=== PATIENT | male | born 1955 | race Two or more races ===

== ENCOUNTER 2018-02-17 09:17 | Inpatient (IN) | payer MEDICAID ==
[~2018-02-17] VITALS: Ht 177.8 cm; Wt 101.6 kg
[2018-02-17 09:28] VITALS: BP 158/108
[2018-02-17] MEDS ORDERED: Sodium Chloride 500ML 500 ML IV ONE (09:29)
[2018-02-17] MEDS ORDERED: Lidocaine 2% Visc 15ml soln ORAL ONE (09:30)
[2018-02-17] MEDS ORDERED: Dicyclomine HCl 10mg/5ml oral soln ORAL ONE (09:30)
[2018-02-17] MEDS ORDERED: Mylanta II UD 30ml ORAL ONE (09:30)
--- NOTE | 2018-02-17 09:37 | Emergency Room Report ---
History of Present Illness General Chief Complaint: Abdominal Pain Source: Patient Present Illness HPI 62 yo M presents to ED c/o abdominal pain. notes having epigastric pain after eating x 1 month. pain is sharp, 6/10 non radiating. denies nausea or vomiting. denies chest pain or SOB. no other aggravating or relieving factors. denies any other associated symptoms Allergies: Coded Allergies: No Known Allergies (Unverified , 02/17/18) Patient History Past Medical History: none Past Surgical History: none Pertinent Family History: none Social History: Denies: smoking, alcohol use, drug use Immunizations: UTD Reviewed Nursing Documentation: PMH: Agreed; PSxH: Agreed Nursing Documentation-PMH Past Medical History: No Stated History Review of Systems All Other Systems: negative except mentioned in HPI Physical Exam Vital Signs Date Time Temp Pulse Resp B/P (MAP) Pulse Ox O2 Delivery O2 Flow Rate FiO2 02/17/18 09:20 98.0 142 16 162/105 97 Room Air 98.1 Sp02 EP Interpretation: reviewed, normal General Appearance: no apparent distress, alert, GCS 15, non-toxic, obese Head: normocephalic, atraumatic Eyes: bilateral eye normal inspection, bilateral eye PERRL ENT: hearing grossly normal, normal pharynx, no angioedema, normal voice Neck: full range of motion, supple/symm/no masses Respiratory: chest non-tender, lungs clear, normal breath sounds, speaking full sentences Cardiovascular #1: no edema, tachycardia Cardiovascular #2: 2+ carotid (R), 2+ carotid (L), 2+ radial (R), 2+ radial (L) , 2+ dorsalis pedis (R), 2+ dorsalis pedis (L) Gastrointestinal: normal bowel sounds, soft, non-distended, no guarding, no rebound, tenderness - epigastric Rectal: deferred Genitourinary: normal inspection, no CVA tenderness Musculoskeletal: back normal, gait/station normal, normal range of motion, non- tender Neurologic: alert, oriented x3, responsive, motor strength/tone normal, sensory intact, speech normal Psychiatric: judgement/insight normal, memory normal, mood/affect normal, no suicidal/homicidal ideation Reflexes: 3+ bicep (R), 3+ bicep (L), 3+ tricep (R), 3+ tricep (L), 3+ knee (R) , 3+ knee (L) Skin: normal color, no rash, warm/dry, well hydrated Lymphatic: no adenopathy Procedures Critical Care Time Critical Care Time i. I feel this is a highly complex case requiring extensive working including EKG/Rhythm strip, Xray/CT/US, Blood/urine lab work, repeat exams while in ED, and administration of strong opiates/narcotics for pain control, admission to hospital or close patient follow up. Total time: 30 min bedside evaluation and treatment excludes procedures (EKG). Reason for critical care: afib with RVR Possible complications: hypotension, hypertension, ME, shock, arrhythmias, metabolic acidosis, end organ damage, respiratory failure. Interventions: labs, ivfs, ekg, cxr, abd US. lopressor. aspirin Course: Patient presenting with epigastric pain 1 month. EKG shows A. fib with RVR to the 160s. Patient denies any previous cardiac history. Given Lopressor times multiple doses with heart rate improvement. Given multiple IV fluid boluses. Troponins negative. Abdominal ultrasound unremarkable. Consultations: nursing staff, EMS, family Performed by: Dr Cunningham Tolerated well condition = serious j. because of unstable vital signs this patient had a condition that could potentially threaten life or limb. I feel this is a critical patient who required my full attention while patient was considered critical. Total Critical Care Time excluding procedures was greater than 35 minutes Medical Decision Making Diagnostic Impression: Primary Impression: Atrial fibrillation with RVR Additional Impression: Renal insufficiency ER Course Hospital Course 62-year-old male presents ED with epigastric pain Differential diagnoses include: ME/unstable angina, gastritis, pancreatitis Clinical course Patient placed on stretcher. on anesthesia director which shows A. fib with RVR. no prior cardiac history After initial history and physical I ordered labs, EKG, chest x-ray, abd US labs reviewed- no leukocytosis, hemoglobin/hematocrit ok, BUN/Cr elevated, troponins 0.027 EKG - afib with RVR, no acute ischemic changes interpreted by me Chest x-ray- CHF ABD US - no acuet process IVFs, lopressor given. tachycardia improving. given aspirin Case discussed with Dr. Ayers and he agreed to accept the patient to his service for further care and support I. I feel this is a highly complex case requiring extensive working including EKG/Rhythm strip, Xray/CT/US, Blood/urine lab work, repeat exams while in ED, and administration of strong opiates/narcotics for pain control, admission to hospital or close patient follow up. Diagnosis - afib with RVR, renal insufficeincy admitted to telemetry in serious condition Labs Test 02/17/18 09:50 White Blood Count 8.7 K/UL (4.8-10.8) Red Blood Count 5.10 M/UL (4.70-6.10) Hemoglobin 14.3 G/DL (14.2-18.0) Hematocrit 44.5 % (42.0-52.0) Mean Corpuscular Volume 87 FL (80-99) Mean Corpuscular Hemoglobin 28.0 PG (27.0-31.0) Mean Corpuscular Hemoglobin Concent 32.1 G/DL (32.0-36.0) Red Cell Distribution Width 13.9 % (11.6-14.8) Platelet Count 303 K/UL (150-450) Mean Platelet Volume 8.8 FL (6.5-10.1) Neutrophils (%) (Auto) 65.1 % (45.0-75.0) Lymphocytes (%) (Auto) 26.4 % (20.0-45.0) Monocytes (%) (Auto) 5.8 % (1.0-10.0) Eosinophils (%) (Auto) 1.7 % (0.0-3.0) Basophils (%) (Auto) 1.1 % (0.0-2.0) Sodium Level 138 MMOL/L (136-145) Potassium Level 3.0 MMOL/L (3.5-5.1) Chloride Level 101 MMOL/L (98-107) Carbon Dioxide Level 28 MMOL/L (21-32) Anion Gap 9 mmol/L (5-15) Blood Urea Nitrogen 31 mg/dL (7-18) Creatinine 1.9 MG/DL (0.55-1.30) Estimat Glomerular Filtration Rate 36.3 mL/min (>60) Glucose Level 171 MG/DL (74-106) Calcium Level 8.3 MG/DL (8.5-10.1) Total Bilirubin 1.1 MG/DL (0.2-1.0) Direct Bilirubin 0.3 MG/DL (0.0-0.3) Aspartate Amino Transf (AST/SGOT) 45 U/L (15-37) Alanine Aminotransferase (ALT/SGPT) 103 U/L (12-78) Alkaline Phosphatase 64 U/L (46-116) Troponin I 0.027 ng/mL (0.000-0.056) Total Protein 6.6 G/DL (6.4-8.2) Albumin 3.2 G/DL (3.4-5.0) Globulin 3.4 g/dL Albumin/Globulin Ratio 0.9 (1.0-2.7) Lipase 251 U/L (73-393) EKG Diagnostic Results Rate: tachycardiac Rhythm: other - afib with RVR ST Segments: no acute changes ASA given to the pt in ED: Yes Rhythm Strip Diag. Results EP Interpretation: yes Rhythm: no PVC's Chest X-Ray Diagnostic Results Chest X-Ray Diagnostic Results : Chest X-Ray Ordered: Yes # of Views/Limited/Complete: 1 View Indication: Shortness of Breath EP Interpretation: Yes Interpretation: no pneumothorax, other - cardiomegaly. chf Impression: Other - chf Last Vital Signs Date Time Temp Pulse Resp B/P (MAP) Pulse Ox O2 Delivery O2 Flow Rate FiO2 02/17/18 09:20 98.0 142 16 162/105 97 Room Air 98.1 Status: improved Disposition: ADMITTED INPATIENT Condition: Serious Scripts No Active Prescriptions or Reported Evans Mat Cunningham MD Feb 17, 2018 09:37
[2018-02-17 10:00] VITALS: BP 160/114
[2018-02-17] MEDS: Metoprolol 5mg/5ml Inj IVP SCH ×6 (10:00→18:55)
[2018-02-17 10:05] VITALS: BP 162/133
[2018-02-17 10:08] LABS: BASOPHILS % (AUTO) 1.1 % (0.0-2.0); EOSINOPHILS % (AUTO) 1.7 % (0.0-3.0); HEMATOCRIT 44.5 % (42.0-52.0); HEMOGLOBIN 14.3 G/DL (14.2-18.0); LYMPHOCYTES % (AUTO) 26.4 % (20.0-45.0); MEAN CORPUSCULAR VOLUME 87 FL (80-99); MONOCYTES % (AUTO) 5.8 % (1.0-10.0); NEUTROPHILS % (AUTO) 65.1 % (45.0-75.0); PLATELET COUNT 303 K/UL (150-450); RED CELL DISTRIBUTION WIDTH 13.9 % (11.6-14.8); WHITE BLOOD COUNT 8.7 K/UL (4.8-10.8)
[2018-02-17 10:10] VITALS: BP 138/116
[2018-02-17 10:19] LABS: ANION GAP 9 mmol/L (5-15); BLOOD UREA NITROGEN 31 mg/dL (7-18); CALCIUM 8.3 MG/DL (8.5-10.1); CARBON DIOXIDE 28 MMOL/L (21-32); CHLORIDE 101 MMOL/L (98-107); CREATININE 1.9 MG/DL (0.55-1.30); SODIUM 138 MMOL/L (136-145)
[2018-02-17 10:26] LABS: ALANINE AMINOTRANSFERASE 103 U/L (12-78); ALBUMIN 3.2 G/DL (3.4-5.0); ALBUMIN/GLOBULIN RATIO 0.9 (1.0-2.7); ALKALINE PHOSPHATASE 64 U/L (46-116); ASPARTATE AMINO TRANSFERASE 45 U/L (15-37); BILIRUBIN,TOTAL 1.1 MG/DL (0.2-1.0)
--- NOTE | 2018-02-17 10:41 | Diagnostic Imaging Report ---
Indication: Pain Technique: XRAY Chest 1v Comparison: None Findings: Heart is enlarged. There is mild central pulmonary vascular congestion. These have contours appear sharp. No focal airspace consolidation, pleural effusion or pneumothorax. No acute osseous abnormality identified. No evidence to suggest free air under the diaphragms. Impression: Cardiomegaly with mild central pulmonary vascular congestion. No focal consolidation, pleural effusion or pneumothorax.
[2018-02-17 10:48] LABS: BILIRUBIN,DIRECT 0.3 MG/DL (0.0-0.3)
[2018-02-17] MEDS ORDERED: Metoprolol 5mg/5ml Inj IVP ONE (11:00)
[2018-02-17 11:35] VITALS: BP 126/89
--- NOTE | 2018-02-17 12:27 | History & Physical ---
History and Physical History & Physicial patient is seen and examined. Dictation will be completed later Joana Ayers MD Feb 17, 2018 12:27
--- NOTE | 2018-02-17 13:49 | Diagnostic Imaging Report ---
Indication: Abdominal pain Technique: US ABD Complete Comparison: None Findings: Liver is enlarged with the right lobe measuring 21 cm in length. No focal hepatic mass lesion is appreciated sonographically. The portal vein is patent. A approximate 5 mm echogenic structure adherent to the gallbladder wall is noted, likely representing a small gallbladder polyp. Gallbladder wall is mildly thickened at 3.6 mm. Sonographic Em sign reported as negative. There is no intrahepatic or extrahepatic biliary ductal dilatation. Common bile duct measures approximately 9 mm in diameter. Liver contour appears smooth. Pancreas poorly visualized due to overlying bowel gas. Imaged portions of the head are grossly unremarkable. Kidneys demonstrate normal echogenicity. No hydronephrosis or sonographically appreciable renal stone bilaterally. Spleen and the upper limits for normal size. Small amount of perihepatic and perisplenic ascites is noted. There is a trace right pleural effusion. IMPRESSION: * Subcentimeter echogenic focus in the gallbladder may represent a small gallbladder polyp versus stone. Per report, technologist unable to turn patient decubitus to assess for mobility. * Mild gallbladder wall thickening. Nonspecific, possibly related to concurrent mild ascites. Correlate clinically. Sonographic Em sign was reported as negative. * Pancreas poorly visualized due to overlying bowel gas. * Trace right pleural effusion. * Hepatomegaly.
[2018-02-17] MEDS: Enoxaparin 100mg Inj SUBQ SCH (15:44)
[2018-02-17] MEDS ORDERED: Digoxin 0.5mg/2ml Inj IVP SCH (19:30)
--- NOTE | 2018-02-17 19:41 | Cardiology Progress Note ---
Assessment/Plan Assessment/Plan The patient is seen and examined, full consult note will be dictated. Objective Last 24 Hour Vital Signs Date Time Temp Pulse Resp B/P (MAP) Pulse Ox O2 Delivery O2 Flow Rate FiO2 02/17/18 18:55 144 114/96 02/17/18 18:26 140 109/79 02/17/18 18:11 154 123/93 02/17/18 16:00 140 02/17/18 12:10 98.1 116 22 126/89 98 Room Air 98.1 02/17/18 11:35 98.1 116 22 126/89 98 Room Air 98.1 02/17/18 11:18 122 126/89 02/17/18 10:10 138 138/116 02/17/18 10:10 138 18 138/116 98 Room Air 02/17/18 10:05 135 162/133 02/17/18 10:05 98.1 135 18 162/133 100 Room Air 98.1 02/17/18 10:00 157 160/114 02/17/18 10:00 157 24 160/114 98 Room Air 02/17/18 09:28 98.1 158 18 158/108 100 Room Air 98.1 02/17/18 09:20 98.0 142 16 162/105 97 Room Air 98.1 Laboratory Tests Test 02/17/18 09:50 White Blood Count 8.7 K/UL (4.8-10.8) Red Blood Count 5.10 M/UL (4.70-6.10) Hemoglobin 14.3 G/DL (14.2-18.0) Hematocrit 44.5 % (42.0-52.0) Mean Corpuscular Volume 87 FL (80-99) Mean Corpuscular Hemoglobin 28.0 PG (27.0-31.0) Mean Corpuscular Hemoglobin Concent 32.1 G/DL (32.0-36.0) Red Cell Distribution Width 13.9 % (11.6-14.8) Platelet Count 303 K/UL (150-450) Mean Platelet Volume 8.8 FL (6.5-10.1) Neutrophils (%) (Auto) 65.1 % (45.0-75.0) Lymphocytes (%) (Auto) 26.4 % (20.0-45.0) Monocytes (%) (Auto) 5.8 % (1.0-10.0) Eosinophils (%) (Auto) 1.7 % (0.0-3.0) Basophils (%) (Auto) 1.1 % (0.0-2.0) Sodium Level 138 MMOL/L (136-145) Potassium Level 3.0 MMOL/L (3.5-5.1) L Chloride Level 101 MMOL/L (98-107) Carbon Dioxide Level 28 MMOL/L (21-32) Anion Gap 9 mmol/L (5-15) Blood Urea Nitrogen 31 mg/dL (7-18) H Creatinine 1.9 MG/DL (0.55-1.30) H Estimat Glomerular Filtration Rate 36.3 mL/min (>60) Glucose Level 171 MG/DL (74-106) H Calcium Level 8.3 MG/DL (8.5-10.1) L Total Bilirubin 1.1 MG/DL (0.2-1.0) H Direct Bilirubin 0.3 MG/DL (0.0-0.3) Aspartate Amino Transf (AST/SGOT) 45 U/L (15-37) H Alanine Aminotransferase (ALT/SGPT) 103 U/L (12-78) H Alkaline Phosphatase 64 U/L (46-116) Troponin I 0.027 ng/mL (0.000-0.056) Pro-B-Type Natriuretic Peptide Pending Total Protein 6.6 G/DL (6.4-8.2) Albumin 3.2 G/DL (3.4-5.0) L Globulin 3.4 g/dL Albumin/Globulin Ratio 0.9 (1.0-2.7) L Lipase 251 U/L (73-393) Armando Gardner MD Feb 17, 2018 19:41
[2018-02-17] MEDS: HydrALAZINE 10mg Tab ORAL SCH (19:59)
[2018-02-17 20:00] VITALS: BP 121/96
[2018-02-17] MEDS ORDERED: Metoprolol 25mg tab ORAL SCH (21:00)
[2018-02-17] MEDS ORDERED: Enoxaparin 80mg Inj SUBQ SCH (21:00)
[2018-02-17] MEDS ORDERED: Metoprolol Tartrate 50mg tab ORAL SCH (21:00)
--- NOTE | 2018-02-17 21:30 | Consultation ---
DATE OF CONSULTATION: 02/17/2018 CARDIOLOGY CONSULTATION CONSULTING PHYSICIAN: Armando Gardner M.D. REFERRING PHYSICIAN: Joana Ayers M.D. REASON FOR CONSULTATION: Management of atrial fibrillation. HISTORY OF PRESENT ILLNESS: The patient is a very unfortunate 62-year-old gentleman, who presented to the emergency department complaining of abdominal pain, which is mainly in the epigastric area that happens postprandial and has been going on for the past month. On arrival to the hospital, the patient was noted to have a blood pressure of 162/105 mmHg and heart rate of 142. A 12-lead electrocardiogram confirmed atrial fibrillation with rapid ventricular response at the rate of 168. The patient was admitted to telemetry for further evaluation and management. Cardiology consultation was made at the request of Dr. Ayers to address and assess new onset atrial fibrillation. The patient, of note, has not been on any medication and has not had any medical problem up to this date. PAST MEDICAL HISTORY: None. PAST SURGICAL HISTORY: None. LIST OF MEDICATIONS: None. ALLERGIES: No known drug allergies. FAMILY HISTORY: No history of premature coronary artery disease or arrhythmogenic in the first-degree relatives. SOCIAL HISTORY: Denies any history of tobacco, alcohol, or illicit drug use. REVIEW OF SYSTEMS: A 12-system review done essentially negative except what mentioned in the history of present illness. COURSE OF HOSPITALIZATION: The patient received two doses of intravenous metoprolol 5 mg in the emergency department and was transferred up to telemetry. In the telemetry unit, the patient continued to have atrial fibrillation with rapid ventricular response and received an extra three doses of 5 mg IV metoprolol and became short of breath and diaphoretic. The blood pressure remained to be stable at 117/95 mmHg. Chest x-ray review showed cardiomegaly with some signs of pulmonary vascular congestion and early congestive heart failure. A 2D echocardiogram was also reviewed showing global left ventricular hypokinesia with left ventricular ejection fraction approximately 10% and evidence of severe pulmonary hypertension. The patient has already been started on Lovenox 100 mg subcutaneous q.[address] Ayers. PHYSICAL EXAMINATION: VITAL SIGNS: On arrival to the emergency department, blood pressure was 162/105 mmHg, respirations of 16, pulse of 142, temperature 98.0 degrees Fahrenheit, and O2 saturation of 97% on room air. GENERAL: The patient is a very unfortunate 62-year-old gentleman, currently diaphoretic, in [id number] respiratory distress, following the administration of intravenous metoprolol. He denies any chest pain or palpitations. HEENT: Atraumatic and normocephalic. Anicteric. Pupils are equal, round, and reactive to light and accommodation. Extraocular muscles intact. NECK: JVP is about 15 to 20 cm. No carotid bruit. Carotid upstrokes 2+ bilaterally. CARDIOVASCULAR: Normal S1 and S2. Tachycardic. Irregular regular rhythm. No murmurs, gallops, or rubs. LUNGS: Diminished breath sounds throughout with evidence of bibasilar crackles. ABDOMEN: Soft, nontender, and nondistended. No hepatosplenomegaly. Positive bowel sounds. EXTREMITIES: No evidence of edema, clubbing, or cyanosis. LABORATORY FINDINGS: WBC is 8.7, hemoglobin 14.3, hematocrit of 44.5, and platelet count 303,000. Sodium is 138, potassium 3.0, chloride 101, bicarbonate 28, BUN of 31, creatinine 1.9, and glucose 171. Calcium is 8.3. Troponin I 0.027. AST is 45 and ALT of 103. Chest x-ray shows cardiomegaly with central pulmonary vascular congestion and early congestive heart failure. A 12-lead electrocardiogram, atrial fibrillation with rapid ventricular response at the rate of 168 with septal wall infarct and no evidence of left ventricular hypertrophy. There is single ventricular premature complexes. ASSESSMENT AND PLAN: The patient is a very unfortunate 62-year-old gentleman, seen in Cardiology consultation at the request of Dr. Ayers. 1. Atrial fibrillation with rapid ventricular response likely due to underlying structural heart disease, i.e. atrial dilatation. The patient will be continued on Lovenox 100 mg subcutaneous twice daily, he was refractory to metoprolol IV. I would like to switch to Coreg 3.125 mg twice daily given the report of 2D echocardiography consistent with severe dilated cardiomyopathy. I would also like to use digoxin 0.25 mg intravenous push x1 dose given creatinine of 1.9. Additional KCl 40 mEq was given to avoid digoxin toxicity with hypokalemia. The patient may end up having FIDELINA and cardioversion if he remains to be in atrial fibrillation despite aggressive medical therapy. 2. Severe dilated cardiomyopathy with left ventricular ejection fraction approximately 10%. Diastolic function could not be evaluated due to underlying atrial fibrillation. The patient requires workup of acute heart failure including left and right heart catheterization, which will be arranged once he is more stable. At this time, I would like to start the patient on Coreg 3.125 mg daily. Continue digoxin 0.125 mg daily and given the fact that his creatinine is 1.9, to start a combination of Isordil and hydralazine. He would benefit from low-dose Aldactone although it depends on the creatinine level in the next few days. 3. Hyperglycemia. Require to workup diabetes mellitus. Obtain hemoglobin A1c. I would have Dr. Ayers to proceed with the above. I would like to thank, Dr. Ayers, for the courtesy of this consultation. Armando Gardner M.D. DR: NAVID JOB#: [id number] CC:
[2018-02-18] VITALS: BP 112/90
[2018-02-18 04:00] VITALS: BP 145/92
[2018-02-18 06:29] LABS: BASOPHILS % (AUTO) 0.9 % (0.0-2.0); EOSINOPHILS % (AUTO) 0.4 % (0.0-3.0); HEMATOCRIT 40.3 % (42.0-52.0); HEMOGLOBIN 13.3 G/DL (14.2-18.0); LYMPHOCYTES % (AUTO) 21.5 % (20.0-45.0); MEAN CORPUSCULAR VOLUME 88 FL (80-99); MONOCYTES % (AUTO) 6.4 % (1.0-10.0); NEUTROPHILS % (AUTO) 70.8 % (45.0-75.0); PLATELET COUNT 222 K/UL (150-450); RED BLOOD COUNT 4.58 M/UL (4.70-6.10); RED CELL DISTRIBUTION WIDTH 14.1 % (11.6-14.8); WHITE BLOOD COUNT 7.9 K/UL (4.8-10.8)
[2018-02-18 07:02] LABS: ALANINE AMINOTRANSFERASE 359 U/L (12-78); ALBUMIN 2.8 G/DL (3.4-5.0); ALKALINE PHOSPHATASE 79 U/L (46-116); ANION GAP 11 mmol/L (5-15); ASPARTATE AMINO TRANSFERASE 355 U/L (15-37); BILIRUBIN,TOTAL 1.3 MG/DL (0.2-1.0); BLOOD UREA NITROGEN 40 mg/dL (7-18); CALCIUM 7.7 MG/DL (8.5-10.1); CARBON DIOXIDE 26 MMOL/L (21-32); CHLORIDE 104 MMOL/L (98-107); CHOLESTEROL 85 MG/DL (< 200); CREATININE 2.6 MG/DL (0.55-1.30); HDL CHOLESTEROL 23 MG/DL (40-60); POTASSIUM 4.1 MMOL/L (3.5-5.1); SODIUM 141 MMOL/L (136-145); TRIGLYCERIDES 46 MG/DL (30-150)
[2018-02-18 07:04] LABS: BILIRUBIN,DIRECT 0.5 MG/DL (0.0-0.3)
[2018-02-18 08:00] VITALS: BP 138/91
[2018-02-18] MEDS: Enoxaparin 100mg Inj SUBQ SCH ×2 (08:50→21:03)
[2018-02-18] MEDS: Digoxin 0.125mg tab ORAL SCH (08:52)
[2018-02-18] MEDS: HydrALAZINE 10mg Tab ORAL SCH ×3 (08:52→17:52)
--- NOTE | 2018-02-18 09:37 | History & Physical ---
History and Physical History & Physicial HISTORY OF PRESENT ILLNESS: The patient is a very unfortunate 62-year-old gentleman, who presented to the emergency department complaining of abdominal pain, which is mainly in the epigastric area that happens postprandial and has been going on for the past month. On arrival to the hospital, the patient was noted to have a blood pressure of 162/105 mmHg and heart rate of 142. A 12-lead electrocardiogram confirmed atrial fibrillation with rapid ventricular response at the rate of 168. The patient was admitted to telemetry for further evaluation and management. The patient, of note, has not been on any medication and has not had any medical problem up to this date. PAST MEDICAL HISTORY: None. PAST SURGICAL HISTORY: None. LIST OF MEDICATIONS: None. ALLERGIES: No known drug allergies. FAMILY HISTORY: No history of premature coronary artery disease or arrhythmogenic in the first-degree relatives. SOCIAL HISTORY: Denies any history of tobacco, alcohol, or illicit drug use. REVIEW OF SYSTEMS: A 12-system review done essentially negative except what mentioned in the history of present illness. The patient has already been started on Lovenox 100 mg subcutaneous q.[address] Ayers. PHYSICAL EXAMINATION: VITAL SIGNS: On arrival to the emergency department, blood pressure was 162/105 mmHg, respirations of 16, pulse of 142, temperature 98.0 degrees Fahrenheit, and O2 saturation of 97% on room air. GENERAL: The patient is a very unfortunate 62-year-old gentleman, currently diaphoretic, in [id number] respiratory distress, following the administration of intravenous metoprolol. He denies any chest pain or palpitations. HEENT: Atraumatic and normocephalic. Anicteric. Pupils are equal, round, and reactive to light and accommodation. Extraocular muscles intact. NECK: JVP is about 15 to 20 cm. No carotid bruit. Carotid upstrokes 2+ bilaterally. CARDIOVASCULAR: Normal S1 and S2. Tachycardic. Irregular regular rhythm. No murmurs, gallops, or rubs. LUNGS: Diminished breath sounds throughout with evidence of bibasilar crackles. ABDOMEN: Soft, nontender, and nondistended. No hepatosplenomegaly. Positive bowel sounds. EXTREMITIES: No evidence of edema, clubbing, or cyanosis. LABORATORY FINDINGS: WBC is 8.7, hemoglobin 14.3, hematocrit of 44.5, and platelet count 303,000. Sodium is 138, potassium 3.0, chloride 101, bicarbonate 28, BUN of 31, creatinine 1.9, and glucose 171. Calcium is 8.3. Troponin I 0.027. AST is 45 and ALT of 103. Chest x-ray shows cardiomegaly with central pulmonary vascular congestion and early congestive heart failure. A 12-lead electrocardiogram, atrial fibrillation with rapid ventricular response at the rate of 168 with septal wall infarct and no evidence of left ventricular hypertrophy. There is single ventricular premature complexes. ASSESSMENT AND PLAN: 1- New CHF- Low EF 2- Renal failure 3- HypoNatremia 4- Anemia Plan: Admit to Tele Echo Cardiology consult Monitor serum Troponin levels Joana Ayers MD Feb 18, 2018 09:37
--- NOTE | 2018-02-18 09:39 | General Progress Note ---
Assessment/Plan Assessment/Plan S: I am ok O: appears comfortable, at the bed side. Denies SOB or CP PHYSICAL EXAMINATION: He denies any chest pain or palpitations. HEENT: Atraumatic and normocephalic. Anicteric. Pupils are equal, round, and reactive to light and accommodation. Extraocular muscles intact. NECK: JVP is about 15 to 20 cm. No carotid bruit. Carotid upstrokes 2+ bilaterally. CARDIOVASCULAR: Normal S1 and S2. Tachycardic. Irregular regular rhythm. No murmurs, gallops, or rubs. LUNGS: Diminished breath sounds throughout with evidence of bibasilar crackles. ABDOMEN: Soft, nontender, and nondistended. No hepatosplenomegaly. Positive bowel sounds. EXTREMITIES: No evidence of edema, clubbing, or cyanosis. LABORATORY FINDINGS: hemoglobin 11.3, ASSESSMENT AND PLAN: 1- New CHF- Low EF 2- Renal failure 3- HypoNatremia 4- Anemia 5- Hypothyroidism Plan: Anemia workup start Levothyroxine c/w Lovenox and Dig Subjective Allergies: Coded Allergies: No Known Allergies (Unverified , 02/17/18) Objective Last 24 Hour Vital Signs Date Time Temp Pulse Resp B/P (MAP) Pulse Ox O2 Delivery O2 Flow Rate FiO2 02/18/18 08:52 138/91 02/18/18 08:52 71 02/18/18 08:51 71 138/91 02/18/18 06:00 145/92 02/18/18 04:00 99.0 115 16 145/92 98 Nasal Cannula 6.0 99.0 02/18/18 04:00 115 02/18/18 00:09 114/96 02/18/18 00:00 98.0 110 20 112/90 96 Nasal Cannula 6.0 98.0 02/18/18 00:00 110 02/17/18 21:41 145 114/96 02/17/18 20:01 114/96 02/17/18 20:00 126 02/17/18 20:00 98.0 145 22 121/96 96 Nasal Cannula 6.0 98.0 02/17/18 19:59 114/96 02/17/18 19:59 145 02/17/18 18:55 144 114/96 02/17/18 18:26 140 109/79 02/17/18 18:11 154 123/93 02/17/18 16:00 140 02/17/18 12:10 98.1 116 22 126/89 98 Room Air 98.1 02/17/18 11:35 98.1 116 22 126/89 98 Room Air 98.1 02/17/18 11:18 122 126/89 02/17/18 10:10 138 138/116 02/17/18 10:10 138 18 138/116 98 Room Air 02/17/18 10:05 135 162/133 02/17/18 10:05 98.1 135 18 162/133 100 Room Air 98.1 02/17/18 10:00 157 160/114 02/17/18 10:00 157 24 160/114 98 Room Air Intake and Output 02/17/18 02/18/18 19:00 07:00 Intake Total 1900 ml 240 ml Output Total 1200 ml Balance 1900 ml -960 ml Intake Oral 400 ml 240 ml IV Total 1500 ml Output Urine Total 1200 ml # Voids 3 3 Laboratory Tests 02/17/18 09:50: White Blood Count 8.7, Red Blood Count 5.10, Hemoglobin 14.3, Hematocrit 44.5, Mean Corpuscular Volume 87, Mean Corpuscular Hemoglobin 28.0, Mean Corpuscular Hemoglobin Concent 32.1, Red Cell Distribution Width 13.9, Platelet Count 303, Mean Platelet Volume 8.8, Neutrophils (%) (Auto) 65.1, Lymphocytes (%) (Auto) 26.4, Monocytes (%) (Auto) 5.8, Eosinophils (%) (Auto) 1.7, Basophils (%) (Auto ) 1.1, Sodium Level 138, Potassium Level 3.0L, Chloride Level 101, Carbon Dioxide Level 28, Anion Gap 9, Blood Urea Nitrogen 31H, Creatinine 1.9H, Estimat Glomerular Filtration Rate 36.3, Glucose Level 171H, Calcium Level 8.3L , Total Bilirubin 1.1H, Direct Bilirubin 0.3, Aspartate Amino Transf (AST/SGOT) 45H, Alanine Aminotransferase (ALT/SGPT) 103H, Alkaline Phosphatase 64, Troponin I 0.027, Pro-B-Type Natriuretic Peptide 2624H, Total Protein 6.6, Albumin 3.2L, Globulin 3.4, Albumin/Globulin Ratio 0.9L, Lipase 251 02/17/18 20:00: Troponin I 0.049 02/18/18 05:50: White Blood Count 7.9, Red Blood Count 4.58L, Hemoglobin 13.3L, Hematocrit 40.3L , Mean Corpuscular Volume 88, Mean Corpuscular Hemoglobin 29.0, Mean Corpuscular Hemoglobin Concent 33.0, Red Cell Distribution Width 14.1, Platelet Count 222, Mean Platelet Volume 8.9, Neutrophils (%) (Auto) 70.8, Lymphocytes (% ) (Auto) 21.5, Monocytes (%) (Auto) 6.4, Eosinophils (%) (Auto) 0.4, Basophils ( %) (Auto) 0.9, Sodium Level 141, Potassium Level 4.1, Chloride Level 104, Carbon Dioxide Level 26, Anion Gap 11, Blood Urea Nitrogen 40H, Creatinine 2.6H , Estimat Glomerular Filtration Rate 25.3, Glucose Level 122H, Calcium Level 7.7L, Total Bilirubin 1.3H, Direct Bilirubin 0.5H, Aspartate Amino Transf (AST/ SGOT) 355H, Alanine Aminotransferase (ALT/SGPT) 359H, Alkaline Phosphatase 79, Troponin I 0.071H, Pro-B-Type Natriuretic Peptide 5213H, Total Protein 5.7L, Albumin 2.8L, Globulin 2.9, Albumin/Globulin Ratio 1.0, Hemoglobin A1c 6.8H, Triglycerides Level 46, Cholesterol Level 85, LDL Cholesterol 68, HDL Cholesterol 23L, Cholesterol/HDL Ratio 3.7, Thyroid Stimulating Hormone (TSH) 4.760H Height (Feet): 5 Height (Inches): 10.00 Weight (Pounds): 240 Joana Ayers MD Feb 18, 2018 09:39
[2018-02-18 10:59] LABS: % IRON SATURATION 6 % (15-50); IRON 19 ug/dL (50-175); TOTAL IRON BINDING CAPACITY 313 ug/dL (250-450)
[2018-02-18 11:53] VITALS: BP 130/93
--- NOTE | 2018-02-18 14:22 | Cardiology Report ---
APPROVED REPORT EKG Measurement Heart [id number] Atrial fibrillation with rapid ventricular response with premature ventricular or aberrantly conducted complexes Septal infarct, age undetermined Abnormal ECG
[2018-02-18 16:00] VITALS: BP 137/73
[2018-02-18 20:00] VITALS: BP 130/87
[2018-02-19] VITALS: BP 128/93
[2018-02-19 04:00] VITALS: BP 145/76
[2018-02-19] MEDS: Levothyroxine 25mcg tab ORAL SCH (05:52)
[2018-02-19] MEDS: Enoxaparin 100mg Inj SUBQ SCH ×2 (08:01→20:43)
[2018-02-19] MEDS: Digoxin 0.125mg tab ORAL SCH (08:02)
[2018-02-19] MEDS: HydrALAZINE 10mg Tab ORAL SCH ×3 (08:02→17:50)
[2018-02-19 08:03] VITALS: BP 140/90
--- NOTE | 2018-02-19 11:04 | General Progress Note ---
Assessment/Plan Assessment/Plan S: I am ok O: appears comfortable, at the bed side. Denies SOB or CP PHYSICAL EXAMINATION: He denies any chest pain or palpitations. HEENT: Atraumatic and normocephalic. Anicteric. Pupils are equal, round, and reactive to light and accommodation. Extraocular muscles intact. NECK: JVP is about 15 to 20 cm. No carotid bruit. Carotid upstrokes 2+ bilaterally. CARDIOVASCULAR: Normal S1 and S2. Tachycardic. Irregular regular rhythm. No murmurs, gallops, or rubs. LUNGS: Diminished breath sounds throughout with evidence of bibasilar crackles. ABDOMEN: Soft, nontender, and nondistended. No hepatosplenomegaly. Positive bowel sounds. EXTREMITIES: No evidence of edema, clubbing, or cyanosis. LABORATORY FINDINGS: hemoglobin 11.3, ASSESSMENT AND PLAN: 1- New CHF- Low EF 2- Renal failure 3- HypoNatremia 4- Anemia 5- Hypothyroidism 6- Iron Def. Anemia 7. Abn LFT Plan: Iron supplement Stool test Hepatitis panel Subjective Allergies: Coded Allergies: No Known Allergies (Unverified , 02/17/18) Objective Last 24 Hour Vital Signs Date Time Temp Pulse Resp B/P (MAP) Pulse Ox O2 Delivery O2 Flow Rate FiO2 02/19/18 09:00 Room Air 02/19/18 08:03 98.2 147 18 140/90 (107) 97 98.2 02/19/18 08:03 147 140/90 02/19/18 08:02 140/90 02/19/18 08:02 147 02/19/18 08:00 162 02/19/18 05:52 130/93 02/19/18 04:00 97.4 128 18 145/76 (99) 94 97.4 02/19/18 04:00 126 02/19/18 00:30 130/93 02/19/18 00:00 133 02/19/18 00:00 97.6 133 16 128/93 (105) 96 97.6 02/18/18 21:02 132 130/93 02/18/18 21:00 Room Air 02/18/18 20:00 130 02/18/18 20:00 97.7 130 18 130/87 (101) 95 97.7 02/18/18 17:52 130/93 02/18/18 17:52 130/93 02/18/18 16:00 132 02/18/18 16:00 97.3 93 20 137/73 (94) 97 97.3 02/18/18 12:00 133 02/18/18 11:55 130/93 02/18/18 11:55 130/93 02/18/18 11:53 97.3 53 20 130/93 (105) 97 97.3 Intake and Output 02/18/18 02/19/18 19:00 07:00 Intake Total 300 ml Output Total 1100 ml Balance 300 ml -1100 ml Intake Oral 300 ml Output Urine Total 1100 ml # Voids 4 Laboratory Tests 02/18/18 11:50: Troponin I 0.058H Height (Feet): 5 Height (Inches): 10.00 Weight (Pounds): 240 Joana Ayers MD Feb 19, 2018 11:04
[2018-02-19 11:47] VITALS: BP 132/86
[2018-02-19 16:00] VITALS: BP 125/83
--- NOTE | 2018-02-19 17:06 | Cardiology Progress Note ---
Assessment/Plan Assessment/Plan 1. Atrial fibrillation with rapid ventricular response likely due to underlying structural heart disease, i.e. atrial dilatation. Will uptitrate coreg. 2. Severe dilated cardiomyopathy with left ventricular ejection fraction approximately 10%. Transfer to [facility] for work-up of acute heart failure, i.e. left and right heart catheterization, 3. Short runs of NSVT, Mg sulfate given, keep Mg level >2.5, K >4.0. Subjective Subjective Short runs of non-sustained VT noted. Mg level checked at 1.9, one gram Mg sulfate IV given. Still Afib with RVR. Objective Last 24 Hour Vital Signs Date Time Temp Pulse Resp B/P (MAP) Pulse Ox O2 Delivery O2 Flow Rate FiO2 02/19/18 16:00 98.1 61 20 125/83 (97) 98 98.1 02/19/18 16:00 146 02/19/18 12:05 132/86 02/19/18 12:05 132/86 02/19/18 12:00 133 02/19/18 11:47 98.4 72 20 132/86 (101) 98 98.4 02/19/18 09:00 Room Air 02/19/18 08:03 98.2 147 18 140/90 (107) 97 98.2 02/19/18 08:03 147 140/90 02/19/18 08:02 140/90 02/19/18 08:02 147 02/19/18 08:00 162 02/19/18 05:52 130/93 02/19/18 04:00 97.4 128 18 145/76 (99) 94 97.4 02/19/18 04:00 126 02/19/18 00:30 130/93 02/19/18 00:00 133 02/19/18 00:00 97.6 133 16 128/93 (105) 96 97.6 02/18/18 21:02 132 130/93 02/18/18 21:00 Room Air 02/18/18 20:00 130 02/18/18 20:00 97.7 130 18 130/87 (101) 95 97.7 02/18/18 17:52 130/93 02/18/18 17:52 130/93 Intake and Output 02/18/18 02/19/18 19:00 07:00 Intake Total 300 ml Output Total 1100 ml Balance 300 ml -1100 ml Intake Oral 300 ml Output Urine Total 1100 ml # Voids 4 2D Echo: Global LV HK, EF 15%, RVSP 53 mmHg, cannot assess diastolic fxn due to AF Laboratory Tests Test 02/19/18 12:25 Magnesium Level 1.9 MG/DL (1.8-2.4) Hepatitis A IgM Antibody Pending Hepatitis B Surface Antigen Pending Hepatitis B Core IgM Antibody Pending Hepatitis C Antibody Pending Objective HEENT: Atraumatic and normocephalic. Anicteric. Pupils are equal, round, and reactive to light and accommodation. Extraocular muscles intact. NECK: JVP is about 20 cm. No carotid bruit. Carotid upstrokes 2+ bilaterally. CARDIOVASCULAR: Normal S1 and S2. Tachycardic. Irregular regular rhythm. No murmurs, gallops, or rubs. LUNGS: Diminished breath sounds throughout with evidence of bibasilar crackles. ABDOMEN: Soft, nontender, and nondistended. No hepatosplenomegaly. Positive bowel sounds. EXTREMITIES: No evidence of edema, clubbing, or cyanosis. Armando aGrdner MD Feb 19, 2018 17:06
[2018-02-19 17:55] LABS: ANION GAP 12 mmol/L (5-15); BLOOD UREA NITROGEN 45 mg/dL (7-18); CALCIUM 8.2 MG/DL (8.5-10.1); CARBON DIOXIDE 23 MMOL/L (21-32); CHLORIDE 105 MMOL/L (98-107); CREATININE 2.3 MG/DL (0.55-1.30); POTASSIUM 4.2 MMOL/L (3.5-5.1); SODIUM 140 MMOL/L (136-145)
[2018-02-19 20:00] VITALS: BP 134/101
[2018-02-19] MEDS: Carvedilol 6.25mg Tab ORAL SCH (20:42)
[2018-02-20] VITALS: BP 143/92
[2018-02-20 04:00] VITALS: BP 131/104
[2018-02-20] MEDS: Levothyroxine 25mcg tab ORAL SCH (06:06)
[2018-02-20 08:00] VITALS: BP 148/111
[2018-02-20] MEDS: Carvedilol 6.25mg Tab ORAL SCH (08:42)
[2018-02-20] MEDS: HydrALAZINE 10mg Tab ORAL SCH (08:42)
[2018-02-20] MEDS: Digoxin 0.125mg tab ORAL SCH (08:43)
[2018-02-20] MEDS: Enoxaparin 100mg Inj SUBQ SCH ×2 (08:45→21:01)
--- NOTE | 2018-02-20 10:00 | Cardiology Progress Note ---
Assessment/Plan Assessment/Plan 1. Atrial fibrillation with rapid ventricular response likely due to underlying structural heart disease, i.e. atrial dilatation. Continue to uptitrate coreg. May require FIDELINA and cardioversion. 2. Severe dilated cardiomyopathy with left ventricular ejection fraction approximately 10%. Transfer to [facility] for work-up of acute heart failure, i.e. left and right heart catheterization, 3. Short runs of NSVT, check Mg level this am. Subjective Subjective Afib with RVR.at 130. Objective Last 24 Hour Vital Signs Date Time Temp Pulse Resp B/P (MAP) Pulse Ox O2 Delivery O2 Flow Rate FiO2 02/20/18 09:00 Room Air 02/20/18 08:43 145 02/20/18 08:42 145 148/111 02/20/18 08:42 148/111 02/20/18 08:00 98.5 145 18 148/111 (123) 98.5 02/20/18 06:06 131/104 02/20/18 04:00 98.0 116 20 131/104 (113) 95 98.0 02/20/18 04:00 129 02/20/18 01:05 125/83 02/20/18 00:00 133 02/20/18 00:00 97.9 112 22 143/92 (109) 96 97.9 02/19/18 21:00 Room Air 02/19/18 20:42 146 125/83 02/19/18 20:00 99.4 110 21 134/101 (112) 97 99.4 02/19/18 20:00 125 02/19/18 17:51 125/83 02/19/18 17:50 125/83 02/19/18 16:00 98.1 61 20 125/83 (97) 98 98.1 02/19/18 16:00 146 02/19/18 12:05 132/86 02/19/18 12:05 132/86 02/19/18 12:00 133 02/19/18 11:47 98.4 72 20 132/86 (101) 98 98.4 Intake and Output 02/19/18 02/20/18 19:00 07:00 Intake Total 540 ml 640 ml Balance 540 ml 640 ml Intake Oral 540 ml 640 ml # Voids 4 1 # Bowel Movements 1 2D Echo: Global LV HK, EF 15%, RVSP 53 mmHg, cannot assess diastolic fxn due to AF Laboratory Tests Test 02/19/18 12:20 02/19/18 12:25 Sodium Level 140 MMOL/L (136-145) Potassium Level 4.2 MMOL/L (3.5-5.1) Chloride Level 105 MMOL/L (98-107) Carbon Dioxide Level 23 MMOL/L (21-32) Anion Gap 12 mmol/L (5-15) Blood Urea Nitrogen 45 mg/dL (7-18) H Creatinine 2.3 MG/DL (0.55-1.30) H Estimat Glomerular Filtration Rate 29.2 mL/min (>60) Glucose Level 180 MG/DL (74-106) H Calcium Level 8.2 MG/DL (8.5-10.1) L Pro-B-Type Natriuretic Peptide 3762 pg/mL (0-125) H Magnesium Level 1.9 MG/DL (1.8-2.4) Hepatitis A IgM Antibody Pending Hepatitis B Surface Antigen Pending Hepatitis B Core IgM Antibody Pending Hepatitis C Antibody Pending Objective HEENT: Atraumatic and normocephalic. Anicteric. Pupils are equal, round, and reactive to light and accommodation. Extraocular muscles intact. NECK: JVP is about 20 cm. No carotid bruit. Carotid upstrokes 2+ bilaterally. CARDIOVASCULAR: Normal S1 and S2. Tachycardic. Irregular regular rhythm. No murmurs, gallops, or rubs. LUNGS: Diminished breath sounds throughout with evidence of bibasilar crackles. ABDOMEN: Soft, nontender, and nondistended. No hepatosplenomegaly. Positive bowel sounds. EXTREMITIES: No evidence of edema, clubbing, or cyanosis. Armando Gardner MD Feb 20, 2018 10:00
[2018-02-20] MEDS ORDERED: Tubing IV Secondary IV ONE (10:48)
[2018-02-20] MEDS ORDERED: NS 275ml ONE (10:48)
[2018-02-20 12:00] VITALS: BP 148/107
[2018-02-20 12:12] LABS: ANION GAP 7 mmol/L (5-15); BLOOD UREA NITROGEN 36 mg/dL (7-18); CALCIUM 8.3 MG/DL (8.5-10.1); CARBON DIOXIDE 25 MMOL/L (21-32); CHLORIDE 106 MMOL/L (98-107); CREATININE 1.9 MG/DL (0.55-1.30); POTASSIUM 3.9 MMOL/L (3.5-5.1); SODIUM 138 MMOL/L (136-145)
[2018-02-20] MEDS: HydrALAZINE 50mg tab ORAL SCH ×2 (12:24→17:12)
--- NOTE | 2018-02-20 12:56 | General Progress Note ---
Assessment/Plan Assessment/Plan S: I am ok O: appears comfortable, at the bed side. Denies SOB or CP PHYSICAL EXAMINATION: He denies any chest pain or palpitations. HEENT: Atraumatic and normocephalic. Anicteric. Pupils are equal, round, and reactive to light and accommodation. Extraocular muscles intact. NECK: JVP is about 15 to 20 cm. No carotid bruit. Carotid upstrokes 2+ bilaterally. CARDIOVASCULAR: Normal S1 and S2. Tachycardic. Irregular regular rhythm. No murmurs, gallops, or rubs. LUNGS: Diminished breath sounds throughout with evidence of bibasilar crackles. ABDOMEN: Soft, nontender, and nondistended. No hepatosplenomegaly. Positive bowel sounds. EXTREMITIES: No evidence of edema, clubbing, or cyanosis. LABORATORY FINDINGS: hemoglobin 11.3, ASSESSMENT AND PLAN: 1- New Dilated Cardiomypathy 2. Afib with RVR 2- Renal failure 3- HypoNatremia 4- Anemia 5- Hypothyroidism 6- Iron Def. Anemia 7. Abn LFT Plan: Iron supplement Transfer to higher level of care Subjective Allergies: Coded Allergies: No Known Allergies (Unverified , 02/17/18) Objective Last 24 Hour Vital Signs Date Time Temp Pulse Resp B/P (MAP) Pulse Ox O2 Delivery O2 Flow Rate FiO2 02/20/18 12:24 148/111 02/20/18 12:00 97.1 128 20 148/107 (121) 97 97.1 02/20/18 11:42 148/111 02/20/18 09:00 Room Air 02/20/18 08:43 145 02/20/18 08:42 145 148/111 02/20/18 08:42 148/111 02/20/18 08:00 156 02/20/18 08:00 98.5 145 18 148/111 (123) 98.5 02/20/18 06:06 131/104 02/20/18 04:00 98.0 116 20 131/104 (113) 95 98.0 02/20/18 04:00 129 02/20/18 01:05 125/83 02/20/18 00:00 133 02/20/18 00:00 97.9 112 22 143/92 (109) 96 97.9 02/19/18 21:00 Room Air 02/19/18 20:42 146 125/83 02/19/18 20:00 99.4 110 21 134/101 (112) 97 99.4 02/19/18 20:00 125 02/19/18 17:51 125/83 02/19/18 17:50 125/83 02/19/18 16:00 98.1 61 20 125/83 (97) 98 98.1 02/19/18 16:00 146 Intake and Output 02/19/18 02/20/18 19:00 07:00 Intake Total 540 ml 640 ml Balance 540 ml 640 ml Intake Oral 540 ml 640 ml # Voids 4 1 # Bowel Movements 1 Laboratory Tests 02/20/18 11:20: Sodium Level 138, Potassium Level 3.9, Chloride Level 106, Carbon Dioxide Level 25, Anion Gap 7, Blood Urea Nitrogen 36H, Creatinine 1.9H, Estimat Glomerular Filtration Rate 36.3, Glucose Level 144H, Calcium Level 8.3L, Pro-B-Type Natriuretic Peptide 4422H, Digoxin Level 0.7 Height (Feet): 5 Height (Inches): 10.00 Weight (Pounds): 233 Joana Ayers MD Feb 20, 2018 12:56
[2018-02-20 16:00] VITALS: BP 129/105
[2018-02-20 20:00] VITALS: BP 134/86
[2018-02-20] MEDS: Carvedilol 12.5mg tab ORAL SCH (21:02)
[2018-02-21] VITALS: BP 128/83
[2018-02-21 04:00] VITALS: BP 122/65
[2018-02-21] MEDS: Levothyroxine 25mcg tab ORAL SCH (05:39)
[2018-02-21 08:00] VITALS: BP 139/94
[2018-02-21] MEDS: HydrALAZINE 50mg tab ORAL SCH ×3 (09:16→17:59)
[2018-02-21] MEDS: Digoxin 0.125mg tab ORAL SCH (09:17)
[2018-02-21] MEDS: Carvedilol 12.5mg tab ORAL SCH ×2 (09:17→21:03)
[2018-02-21] MEDS: Enoxaparin 100mg Inj SUBQ SCH ×2 (09:18→21:05)
--- NOTE | 2018-02-21 11:45 | General Progress Note ---
Assessment/Plan Assessment/Plan S: I am ok O: appears comfortable, at the bed side. Denies SOB or CP PHYSICAL EXAMINATION: He denies any chest pain or palpitations. HEENT: Atraumatic and normocephalic. Anicteric. Pupils are equal, round, and reactive to light and accommodation. Extraocular muscles intact. NECK: JVP is about 15 to 20 cm. No carotid bruit. Carotid upstrokes 2+ bilaterally. CARDIOVASCULAR: Normal S1 and S2. Tachycardic. Irregular regular rhythm. No murmurs, gallops, or rubs. LUNGS: Diminished breath sounds throughout with evidence of bibasilar crackles. ABDOMEN: Soft, nontender, and nondistended. No hepatosplenomegaly. Positive bowel sounds. EXTREMITIES: No evidence of edema, clubbing, or cyanosis. LABORATORY FINDINGS: hemoglobin 11.3, ASSESSMENT AND PLAN: 1- New Dilated Cardiomypathy 2. Afib with RVR 2- Renal failure 3- HypoNatremia 4- Anemia 5- Hypothyroidism 6- Iron Def. Anemia 7. Abn LFT Plan: Iron supplement [facility] Subjective Allergies: Coded Allergies: No Known Allergies (Unverified , 02/17/18) Objective Last 24 Hour Vital Signs Date Time Temp Pulse Resp B/P (MAP) Pulse Ox O2 Delivery O2 Flow Rate FiO2 02/21/18 09:17 120 139/94 02/21/18 09:17 120 02/21/18 09:16 139/94 02/21/18 09:00 Room Air 02/21/18 08:00 97.7 120 18 139/94 (109) 96 97.7 02/21/18 08:00 166 02/21/18 05:39 122/65 02/21/18 04:00 96.6 75 20 122/65 (84) 97 96.6 02/21/18 04:00 120 02/21/18 00:34 128/83 02/21/18 00:00 108 02/21/18 00:00 96.5 89 19 128/83 (98) 98 96.5 02/20/18 21:02 74 134/86 02/20/18 21:00 Room Air 02/20/18 20:00 97.4 74 20 134/86 (102) 97 97.4 02/20/18 20:00 128 02/20/18 17:12 129/105 02/20/18 17:12 129/105 02/20/18 16:00 96.8 135 18 129/105 (113) 98 96.8 02/20/18 16:00 127 02/20/18 12:24 148/111 02/20/18 12:00 97.1 128 20 148/107 (121) 97 97.1 02/20/18 12:00 127 Intake and Output 02/20/18 02/21/18 19:00 07:00 Intake Total 1800 ml Balance 1800 ml Other 1800 ml # Voids 4 2 Height (Feet): 5 Height (Inches): 10.00 Weight (Pounds): 234 Joana Ayers MD Feb 21, 2018 11:45
[2018-02-21 12:00] VITALS: BP 138/96
[2018-02-21 16:05] VITALS: BP 125/93
[2018-02-21 20:00] VITALS: BP 125/79
--- NOTE | 2018-02-21 21:55 | Cardiology Progress Note ---
Assessment/Plan Assessment/Plan 1. Atrial fibrillation with rapid ventricular response likely due to underlying structural heart disease, i.e. atrial dilatation. Continue to uptitrate coreg. FIDELINA and cardioversion scheduled on at [facility]. 2. Severe dilated cardiomyopathy with left ventricular ejection fraction approximately 10%. awaiting transfer to [facility] for left and right heart catheterization. 3. Short runs of NSVT, continue coreg, Mg level >2.5. Subjective Subjective Afib with RVR at 126. Objective Last 24 Hour Vital Signs Date Time Temp Pulse Resp B/P (MAP) Pulse Ox O2 Delivery O2 Flow Rate FiO2 02/21/18 21:03 92 125/79 02/21/18 18:00 125/93 02/21/18 17:59 125/93 02/21/18 16:05 97.0 126 18 125/93 (104) 97 97.0 02/21/18 16:00 118 02/21/18 12:40 138/96 02/21/18 12:40 138/96 02/21/18 12:00 97.6 118 18 138/96 (110) 97 97.6 02/21/18 12:00 105 02/21/18 09:17 120 139/94 02/21/18 09:17 120 02/21/18 09:16 139/94 02/21/18 09:00 Room Air 02/21/18 08:00 97.7 120 18 139/94 (109) 96 97.7 02/21/18 08:00 166 02/21/18 05:39 122/65 02/21/18 04:00 96.6 75 20 122/65 (84) 97 96.6 02/21/18 04:00 120 02/21/18 00:34 128/83 02/21/18 00:00 108 02/21/18 00:00 96.5 89 19 128/83 (98) 98 96.5 Intake and Output 02/20/18 02/21/18 19:00 07:00 Intake Total 1800 ml Balance 1800 ml Other 1800 ml # Voids 4 2 2D Echo: Global LV HK, EF 15%, RVSP 53 mmHg, cannot assess diastolic fxn due to AF Laboratory Tests Test 02/21/18 21:30 Sodium Level Pending Potassium Level Pending Chloride Level Pending Carbon Dioxide Level Pending Blood Urea Nitrogen Pending Creatinine Pending Estimat Glomerular Filtration Rate Pending Glucose Level Pending Calcium Level Pending Objective HEENT: Atraumatic and normocephalic. Anicteric. Pupils are equal, round, and reactive to light and accommodation. Extraocular muscles intact. NECK: JVP is about 20 cm. No carotid bruit. Carotid upstrokes 2+ bilaterally. CARDIOVASCULAR: Normal S1 and S2. Tachycardic. Irregular regular rhythm. No murmurs, gallops, or rubs. LUNGS: Diminished breath sounds throughout with evidence of bibasilar crackles. ABDOMEN: Soft, nontender, and nondistended. No hepatosplenomegaly. Positive bowel sounds. EXTREMITIES: No evidence of edema, clubbing, or cyanosis. Armando Gardner MD Feb 21, 2018 21:55
[2018-02-21 22:08] LABS: ANION GAP 6 mmol/L (5-15); BLOOD UREA NITROGEN 35 mg/dL (7-18); CALCIUM 8.4 MG/DL (8.5-10.1); CARBON DIOXIDE 26 MMOL/L (21-32); CHLORIDE 107 MMOL/L (98-107); CREATININE 2.1 MG/DL (0.55-1.30); POTASSIUM 4.2 MMOL/L (3.5-5.1); SODIUM 139 MMOL/L (136-145)
[2018-02-22] VITALS: BP 128/75
[2018-02-22 04:00] VITALS: BP 120/90
[2018-02-22] MEDS: Levothyroxine 25mcg tab ORAL SCH (05:43)
[2018-02-22 08:00] VITALS: BP 145/108
[2018-02-22] MEDS: HydrALAZINE 50mg tab ORAL SCH ×3 (08:37→17:06)
[2018-02-22] MEDS: Carvedilol 25mg Tab ORAL SCH ×2 (08:37→20:55)
[2018-02-22] MEDS: Spironolactone 25mg tab ORAL SCH (08:38)
[2018-02-22] MEDS: Digoxin 0.125mg tab ORAL SCH (08:38)
[2018-02-22] MEDS: Enoxaparin 100mg Inj SUBQ SCH ×2 (08:39→20:56)
[2018-02-22 12:00] VITALS: BP 122/91
[2018-02-22 16:00] VITALS: BP 143/103
--- NOTE | 2018-02-22 16:23 | General Progress Note ---
Assessment/Plan Assessment/Plan S: I am ok O: appears comfortable, at the bed side. Denies SOB or CP PHYSICAL EXAMINATION: He denies any chest pain or palpitations. HEENT: Atraumatic and normocephalic. Anicteric. Pupils are equal, round, and reactive to light and accommodation. Extraocular muscles intact. NECK: JVP is about 15 to 20 cm. No carotid bruit. Carotid upstrokes 2+ bilaterally. CARDIOVASCULAR: Normal S1 and S2. Tachycardic. Irregular regular rhythm. No murmurs, gallops, or rubs. LUNGS: Diminished breath sounds throughout with evidence of bibasilar crackles. ABDOMEN: Soft, nontender, and nondistended. No hepatosplenomegaly. Positive bowel sounds. EXTREMITIES: No evidence of edema, clubbing, or cyanosis. LABORATORY FINDINGS: hemoglobin 11.3, ASSESSMENT AND PLAN: 1- New Dilated Cardiomypathy with EF < 20% 2. Afib with RVR 2- Renal failure 3- HypoNatremia 4- Anemia 5- Hypothyroidism 6- Iron Def. Anemia 7. Abn LFT Plan: Iron supplement Transfer to higher level of care for [facility] Current medical optimization of medication s per cardiology Subjective Allergies: Coded Allergies: No Known Allergies (Unverified , 02/17/18) Objective Last 24 Hour Vital Signs Date Time Temp Pulse Resp B/P (MAP) Pulse Ox O2 Delivery O2 Flow Rate FiO2 02/22/18 13:03 122/91 02/22/18 13:02 122/91 02/22/18 12:00 97.3 105 19 122/91 (101) 96 97.3 02/22/18 12:00 98 02/22/18 09:00 Room Air 02/22/18 08:38 111 02/22/18 08:37 111 145/108 02/22/18 08:37 145/108 02/22/18 08:00 118 02/22/18 08:00 97.8 111 20 145/108 (120) 95 97.8 02/22/18 05:43 120/90 02/22/18 04:00 124 02/22/18 04:00 97.9 70 20 120/90 (100) 97 97.9 02/22/18 00:27 128/75 02/22/18 00:00 125 02/22/18 00:00 97.6 89 17 128/75 (92) 96 97.6 02/21/18 21:03 92 125/79 02/21/18 21:00 Room Air 02/21/18 20:00 114 02/21/18 20:00 97.7 92 18 125/79 (94) 96 97.7 02/21/18 18:00 125/93 02/21/18 17:59 125/93 Intake and Output 02/21/18 02/22/18 19:00 07:00 Intake Total 360 ml 600 ml Output Total 650 ml Balance -290 ml 600 ml Intake Oral 360 ml 600 ml Output Urine Total 650 ml # Voids 2 # Bowel Movements 1 2 Laboratory Tests 02/21/18 21:30: Sodium Level 139, Potassium Level 4.2, Chloride Level 107, Carbon Dioxide Level 26, Anion Gap 6, Blood Urea Nitrogen 35H, Creatinine 2.1H, Estimat Glomerular Filtration Rate 32.4, Glucose Level 198H, Calcium Level 8.4L 02/22/18 01:00: Stool Occult Blood Negative Height (Feet): 5 Height (Inches): 10.00 Weight (Pounds): 227 Joana Ayers MD Feb 22, 2018 16:23
--- NOTE | 2018-02-22 19:59 | Cardiology Progress Note ---
Assessment/Plan Assessment/Plan 1. Atrial fibrillation with rapid ventricular response likely due to underlying structural heart disease, i.e. atrial dilatation. Continue coreg and lovenox. May require FIDELINA and cardioversion. 2. Severe dilated cardiomyopathy with left ventricular ejection fraction approximately 10%. Transfer to [facility] for left and right heart catheterization , pending clearance, scheduled for am. 3. Short runs of NSVT. Subjective Subjective Afib with RVR at 124. Objective Last 24 Hour Vital Signs Date Time Temp Pulse Resp B/P (MAP) Pulse Ox O2 Delivery O2 Flow Rate FiO2 02/22/18 17:06 143/103 02/22/18 17:06 143/103 02/22/18 16:00 124 02/22/18 16:00 97.6 98 19 143/103 (116) 96 97.6 02/22/18 13:03 122/91 02/22/18 13:02 122/91 02/22/18 12:00 97.3 105 19 122/91 (101) 96 97.3 02/22/18 12:00 98 02/22/18 09:00 Room Air 02/22/18 08:38 111 02/22/18 08:37 111 145/108 02/22/18 08:37 145/108 02/22/18 08:00 118 02/22/18 08:00 97.8 111 20 145/108 (120) 95 97.8 02/22/18 05:43 120/90 02/22/18 04:00 124 02/22/18 04:00 97.9 70 20 120/90 (100) 97 97.9 02/22/18 00:27 128/75 02/22/18 00:00 125 02/22/18 00:00 97.6 89 17 128/75 (92) 96 97.6 02/21/18 21:03 92 125/79 02/21/18 21:00 Room Air 02/21/18 20:00 114 02/21/18 20:00 97.7 92 18 125/79 (94) 96 97.7 Intake and Output 02/21/18 02/22/18 19:00 07:00 Intake Total 360 ml 600 ml Output Total 650 ml Balance -290 ml 600 ml Intake Oral 360 ml 600 ml Output Urine Total 650 ml # Voids 2 # Bowel Movements 1 2 2D Echo: Global LV HK, EF 15%, RVSP 53 mmHg, cannot assess diastolic fxn due to AF Laboratory Tests Test 02/21/18 21:30 02/22/18 01:00 Sodium Level 139 MMOL/L (136-145) Potassium Level 4.2 MMOL/L (3.5-5.1) Chloride Level 107 MMOL/L (98-107) Carbon Dioxide Level 26 MMOL/L (21-32) Anion Gap 6 mmol/L (5-15) Blood Urea Nitrogen 35 mg/dL (7-18) H Creatinine 2.1 MG/DL (0.55-1.30) H Estimat Glomerular Filtration Rate 32.4 mL/min (>60) Glucose Level 198 MG/DL (74-106) H Calcium Level 8.4 MG/DL (8.5-10.1) L Stool Occult Blood Negative (NEGATIVE) Objective HEENT: Atraumatic and normocephalic. Anicteric. Pupils are equal, round, and reactive to light and accommodation. Extraocular muscles intact. NECK: JVP is about 20 cm. No carotid bruit. Carotid upstrokes 2+ bilaterally. CARDIOVASCULAR: Normal S1 and S2. Tachycardic. Irregular regular rhythm. No murmurs, gallops, or rubs. LUNGS: Diminished breath sounds throughout with evidence of bibasilar crackles. ABDOMEN: Soft, nontender, and nondistended. No hepatosplenomegaly. Positive bowel sounds. EXTREMITIES: No evidence of edema, clubbing, or cyanosis. Armando Gardner MD Feb 22, 2018 19:59
[2018-02-22 20:00] VITALS: BP 141/99
[2018-02-23] VITALS: BP 130/97
[2018-02-23 04:00] VITALS: BP 131/99
[2018-02-23] MEDS: Levothyroxine 25mcg tab ORAL SCH (05:33)
[2018-02-23 08:00] VITALS: BP 146/67
[2018-02-23] MEDS: HydrALAZINE 50mg tab ORAL SCH ×3 (09:05→17:43)
[2018-02-23] MEDS: Digoxin 0.125mg tab ORAL SCH (09:05)
[2018-02-23] MEDS: Spironolactone 25mg tab ORAL SCH (09:06)
[2018-02-23] MEDS: Carvedilol 25mg Tab ORAL SCH ×2 (09:06→20:52)
[2018-02-23] MEDS: Enoxaparin 100mg Inj SUBQ SCH ×2 (09:08→20:53)
--- NOTE | 2018-02-23 10:00 | Cardiology Report ---
APPROVED REPORT EXAM: Two-dimensional and M-mode echocardiogram with Doppler and color Doppler. INDICATION ATRIAL FIBRILLATION M-Mode DIMENSIONS IVSd1.0 (0.7-1.1cm)Left Atrium (MM)4.0 (1.6-4.0cm) LVDd6.5 (3.5-5.6cm)Aortic Root3.4 (2.0-3.7cm) PWd1.3 (0.7-1.1cm)Aortic Cusp Exc.1.8 (1.5-2.0cm) IVSs1.3 cm LVDs5.6 (2.5-4.0cm) PWs1.7 cm Technically difficult study due to poor acoustical windows. Severe global hypokinesis . Mild left ventricular enlargements . Left ventricular ejection fraction estimated to be 10-15 %. No evidence of left ventricular hypertrophy. No evidence of pericardial effusion. Mild bi-atrial enlargements . Right ventricular chamber sizes is within normal limits. Focal aortic valve sclerosis with adequate cusp excursion. Thickened mitral valve leaflets with normal excursion. Mitral annulus and aortic root calcification. Pulmonic valve not well visualized. Normal tricuspid valve structure. IVC dilated at 2.8 cm without physiologic collapse suggestive of increased RA pressure. A color flow and spectral Doppler study was performed and revealed: No aortic regurgitation. Moderate mitral regurgitation. Left ventricular diastolic function can not determind due to A-FIB. Moderate tricuspid regurgitation. Tricuspid systolic velocities suggests peak right ventricular systolic pressure of 53 mmHg,consistent with moderate pulmonary hypertension. Trace Pulmonic regurgitation present.
[2018-02-23 12:00] VITALS: BP 134/80
--- NOTE | 2018-02-23 13:25 | General Progress Note ---
Assessment/Plan Assessment/Plan S: I am ok O: appears comfortable, at the bed side. Denies SOB or CP PHYSICAL EXAMINATION: He denies any chest pain or palpitations. HEENT: Atraumatic and normocephalic. Anicteric. Pupils are equal, round, and reactive to light and accommodation. Extraocular muscles intact. NECK: JVP is about 15 to 20 cm. No carotid bruit. Carotid upstrokes 2+ bilaterally. CARDIOVASCULAR: Normal S1 and S2. Tachycardic. Irregular regular rhythm. No murmurs, gallops, or rubs. LUNGS: Diminished breath sounds throughout with evidence of bibasilar crackles. ABDOMEN: Soft, nontender, and nondistended. No hepatosplenomegaly. Positive bowel sounds. EXTREMITIES: No evidence of edema, clubbing, or cyanosis. LABORATORY FINDINGS: hemoglobin 11.3, ASSESSMENT AND PLAN: 1- New Dilated Cardiomypathy with EF < 20% 2. Afib with RVR 2- Renal failure 3- HypoNatremia 4- Anemia 5- Hypothyroidism 6- Iron Def. Anemia 7. Abn LFT Plan: Iron supplement Transfer to higher level of care for [facility] Current medical optimization of medication s per cardiology Subjective Allergies: Coded Allergies: No Known Allergies (Unverified , 02/17/18) Objective Last 24 Hour Vital Signs Date Time Temp Pulse Resp B/P (MAP) Pulse Ox O2 Delivery O2 Flow Rate FiO2 02/23/18 09:06 102 146/67 02/23/18 09:05 146/67 02/23/18 09:05 102 02/23/18 09:00 Room Air 02/23/18 08:00 97.7 102 20 146/67 (93) 96 97.7 02/23/18 05:33 132/88 02/23/18 04:00 120 02/23/18 04:00 97.7 112 20 131/99 (110) 94 97.7 02/23/18 00:00 108 02/23/18 00:00 97.9 105 20 130/97 (108) 97 97.9 02/22/18 23:23 141/99 02/22/18 21:00 Room Air 02/22/18 20:55 89 141/73 02/22/18 20:00 97.2 118 24 141/99 (113) 96 97.2 02/22/18 20:00 123 02/22/18 17:06 143/103 02/22/18 17:06 143/103 02/22/18 16:00 124 02/22/18 16:00 97.6 98 19 143/103 (116) 96 97.6 Intake and Output 02/22/18 02/23/18 19:00 07:00 Intake Total 450 ml 240 ml Output Total 400 ml 500 ml Balance 50 ml -260 ml Intake Oral 450 ml 240 ml Output Urine Total 400 ml 500 ml # Voids 2 # Bowel Movements 1 2 Height (Feet): 5 Height (Inches): 10.00 Weight (Pounds): 225 Joana Ayers MD Feb 23, 2018 13:25
[2018-02-23 16:00] VITALS: BP 138/78
[2018-02-23] MEDS ORDERED: NS 275ml ONE (16:59)
[2018-02-23 20:00] VITALS: BP 131/87
--- NOTE | 2018-02-23 20:11 | Cardiology Progress Note ---
Assessment/Plan Assessment/Plan 1. Atrial fibrillation with rapid ventricular response, require FIDELINA and cardioversion. Awaiting transfer to outside hospital. 2. Severe dilated cardiomyopathy with left ventricular ejection fraction approximately 10%. Transfer to outside hospital for left and right heart catheterization. 3. Short runs of NSVT, Mg at 1.9. Subjective Subjective Afib with RVR at 115. Objective Last 24 Hour Vital Signs Date Time Temp Pulse Resp B/P (MAP) Pulse Ox O2 Delivery O2 Flow Rate FiO2 02/23/18 17:43 134/80 02/23/18 17:43 134/80 02/23/18 16:00 97.7 115 20 138/78 (98) 96 97.7 02/23/18 16:00 114 02/23/18 13:55 138/99 02/23/18 13:55 138/99 02/23/18 12:00 128 02/23/18 12:00 97.5 111 20 134/80 (98) 96 97.5 02/23/18 09:06 102 146/67 02/23/18 09:05 146/67 02/23/18 09:05 102 02/23/18 09:00 Room Air 02/23/18 08:00 132 02/23/18 08:00 97.7 102 20 146/67 (93) 96 97.7 02/23/18 05:33 132/88 02/23/18 04:00 120 02/23/18 04:00 97.7 112 20 131/99 (110) 94 97.7 02/23/18 00:00 108 02/23/18 00:00 97.9 105 20 130/97 (108) 97 97.9 02/22/18 23:23 141/99 02/22/18 21:00 Room Air 02/22/18 20:55 89 141/73 Intake and Output 02/22/18 02/23/18 19:00 07:00 Intake Total 450 ml 240 ml Output Total 400 ml 500 ml Balance 50 ml -260 ml Intake Oral 450 ml 240 ml Output Urine Total 400 ml 500 ml # Voids 2 # Bowel Movements 1 2 2D Echo: Global LV HK, EF 15%, RVSP 53 mmHg, cannot assess diastolic fxn due to AF Objective HEENT: Atraumatic and normocephalic. Anicteric. Pupils are equal, round, and reactive to light and accommodation. Extraocular muscles intact. NECK: JVP is about 20 cm. No carotid bruit. Carotid upstrokes 2+ bilaterally. CARDIOVASCULAR: Normal S1 and S2. Tachycardic. Irregular regular rhythm. No murmurs, gallops, or rubs. LUNGS: Diminished breath sounds throughout with evidence of bibasilar crackles. ABDOMEN: Soft, nontender, and nondistended. No hepatosplenomegaly. Positive bowel sounds. EXTREMITIES: No evidence of edema, clubbing, or cyanosis. Armando Gardner MD Feb 23, 2018 20:11
[2018-02-24] VITALS: BP 126/68
[2018-02-24 04:00] VITALS: BP 123/97
[2018-02-24] MEDS: Levothyroxine 25mcg tab ORAL SCH (06:25)
[2018-02-24 08:00] VITALS: BP 129/79
[2018-02-24] MEDS: Carvedilol 25mg Tab ORAL SCH (08:38)
[2018-02-24] MEDS: Digoxin 0.125mg tab ORAL SCH (08:38)
[2018-02-24] MEDS: Spironolactone 25mg tab ORAL SCH (08:39)
[2018-02-24] MEDS: Enoxaparin 100mg Inj SUBQ SCH (08:41)
[2018-02-24] MEDS ORDERED: HydrALAZINE 50mg tab ORAL SCH (09:00)
--- NOTE | 2018-02-24 11:21 | General Progress Note ---
Assessment/Plan Status: stable Assessment/Plan S: I am ok O: appears comfortable, at the bed side. Denies SOB or CP PHYSICAL EXAMINATION: He denies any chest pain or palpitations. HEENT: Atraumatic and normocephalic. Anicteric. Pupils are equal, round, and reactive to light and accommodation. Extraocular muscles intact. NECK: JVP is about 15 to 20 cm. No carotid bruit. Carotid upstrokes 2+ bilaterally. CARDIOVASCULAR: Normal S1 and S2. Tachycardic. Irregular regular rhythm. No murmurs, gallops, or rubs. LUNGS: Diminished breath sounds throughout with evidence of bibasilar crackles. ABDOMEN: Soft, nontender, and nondistended. No hepatosplenomegaly. Positive bowel sounds. EXTREMITIES: No evidence of edema, clubbing, or cyanosis. LABORATORY FINDINGS: hemoglobin 11.3, ASSESSMENT AND PLAN: 1- New Dilated Cardiomypathy with EF < 20% 2. Afib with RVR 2- Renal failure 3- HypoNatremia 4- Anemia 5- Hypothyroidism 6- Iron Def. Anemia 7. Abn LFT Plan: Iron supplement Transfer to higher level of care for [facility] Current medical optimization of medication s per cardiology on MAC list Subjective Allergies: Coded Allergies: No Known Allergies (Unverified , 02/17/18) Objective Last 24 Hour Vital Signs Date Time Temp Pulse Resp B/P (MAP) Pulse Ox O2 Delivery O2 Flow Rate FiO2 02/24/18 08:39 129/79 02/24/18 08:38 121 129/79 02/24/18 08:38 121 02/24/18 08:00 96.8 121 20 129/79 (96) 96 96.8 02/24/18 08:00 132 02/24/18 06:25 123/97 02/24/18 04:00 97.3 108 24 123/97 (106) 92 97.3 02/24/18 04:00 106 02/24/18 00:05 134/80 02/24/18 00:00 118 02/24/18 00:00 97.3 117 21 126/68 (87) 94 97.3 02/23/18 20:52 114 134/80 02/23/18 20:00 131 02/23/18 20:00 97.5 131 22 131/87 (102) 96 97.5 02/23/18 17:43 134/80 02/23/18 17:43 134/80 02/23/18 16:00 97.7 115 20 138/78 (98) 96 97.7 02/23/18 16:00 114 02/23/18 13:55 138/99 02/23/18 13:55 138/99 02/23/18 12:00 128 02/23/18 12:00 97.5 111 20 134/80 (98) 96 97.5 Intake and Output 02/23/18 02/24/18 19:00 07:00 Intake Total 740 ml 2200 ml Output Total 500 ml Balance 740 ml 1700 ml Intake Oral 740 ml 400 ml Other 1800 ml Output Urine Total 500 ml # Voids 2 24 # Bowel Movements 1 2 Height (Feet): 5 Height (Inches): 10.00 Weight (Pounds): 224 Joana Ayers MD Feb 24, 2018 11:21
[2018-02-24 12:00] VITALS: BP 143/88
--- NOTE | 2018-02-25 08:13 | Discharge Summary ---
Discharge Summary Discharge Summary _ DATE OF ADMISSION: 02/17/2018 DATE OF DISCHARGE: 02/24/2018 CONSULTANTS: Dr. Armando Gardner BRIEF HOSPITAL COURSE: Patient is an unfortunate 62-year-old gentleman, who presented to the emergency department complaining of abdominal pain, mainly in the epigastric area that occurs postprandial and has been ongoing for the past month. He has no known medical history. On evaluation at ED, blood pressure was elevated to 162/105. Heart rate was 142. 12-lead EKG confirmed atrial fibrillation with rapid ventricular response. Blood work showed no leukocytosis, hemoglobin and hematocrit stable, troponin was 0.027. He had elevated liver function tests, AST was 45, ALT 103. He received 2 doses of intravenous metoprolol 5 mg in the emergency department. He was then admitted for further evaluation and management. In the telemetry unit, he continued to have atrial fibrillation with rapid ventricular response and received extra doses of IV metoprolol, however, became short of breath and diaphoretic. Blood pressure remained stable. Chest x-ray showed cardiomegaly with signs of pulmonary vascular congestion and early congestive heart failure. A 2-D echocardiogram showed global left ventricular hypokinesia with left ventricular ejection fraction approximately 10-15% and evidence of severe pulmonary hypertension. He was respiratory to metoprolol. He was given of Coreg and digoxin 0.125 mg daily. He was placed on Lovenox 100 mg every 12 hours. He was eventually started on Isordil 20 mg every 6 hours and spirometer lactone 25 mg daily. He was given hydralazine 100 mg 3 times a day. Thyroid function was noted to be elevated at 4. He was started on levothyroxine 25 g. He had anemia and was given iron supplements. He had short runs of NSVT, mag sulfate was given. Patient has atrial fibrillation with rapid ventricular response likely due to underlying structural heart disease such as atrial dilatation. He has severe dilated cardiomyopathy. Diastolic function could not be evaluated due to underlying atrial fibrillation. He required workup of acute heart failure including left and right heart catheterization. He needed a higher level of care and was initially referred to [facility] for the procedure, however, procedure was canceled and patient was placed on the MAC list. Full treatment was not carried out as patient left AGAINST MEDICAL ADVICE. FINAL DIAGNOSES: New dilated cardiomyopathy with EF 10% A. fib with rapid ventricular rate Renal failure Hyponatremia Iron deficiency anemia Hypothyroidism Abnormal liver function tests DISPOSITION: Patient left AGAINST MEDICAL ADVICE. I have been assigned to dictate discharge summary on this account, and I was not involved in the patient's management. Treasure Loving NP Feb 25, 2018 08:13
== END 2018-02-24 12:45 | disposition left against medical advice (07) | DRG 205 ==
LOC: EMR 09:44 → 2E 10:25 → EDBEDREQ 10:31
DX: I42.0 Dilated cardiomyopathy (principal); I47.2 Ventricular tachycardia; I27.20 Pulmonary hypertension, unspecified; N19 Unspecified kidney failure; E87.1 Hypo-osmolality and hyponatremia; I48.91 Unspecified atrial fibrillation; D50.9 Iron deficiency anemia, unspecified; E03.9 Hypothyroidism, unspecified; R79.89 Other specified abnormal findings of blood chemistry
CPT/HCPCS: 36415; 71045; 76700; 80048; 80053; 80061; 80162; 82248; 82270; 82962; 83036; 83540; 83550; 83690; 83735; 83880; 84443; 84484; 85025; 86705; 86709; 86803; 87340; 93005; 93306; 99291; J8499